=== PATIENT | female | born 1950 | race Caucasian/White ===

== ENCOUNTER 2017-06-18 14:33 | Outpatient (CLI) | payer OTHER | END 2017-06-18 14:45 | disposition home or self-care (01) | LOC: MAMO-SONO 14:33 | DX: N60.11 Diffuse cystic mastopathy of right breast (principal); Z12.31 Encounter for screening mammogram for malignant neoplasm of breast ==

== ENCOUNTER → 2018-09-04 | Outpatient (CLI) | payer OTHER | END | disposition home or self-care (01) | LOC: MAMO-SONO 10:24 | DX: R10.2 Pelvic and perineal pain (principal); N60.11 Diffuse cystic mastopathy of right breast; Z12.31 Encounter for screening mammogram for malignant neoplasm of breast ==

== ENCOUNTER 2018-09-10 08:28 | Outpatient (CLI) | payer OTHER | END 2018-09-10 09:01 | disposition home or self-care (01) | LOC: LAB 08:28 | DX: R10.2 Pelvic and perineal pain (principal); R05 Cough; R07.89 Other chest pain ==

== ENCOUNTER → 2018-10-01 | Day surgery (SDC) | payer OTHER ==
[~2018-10-01] MED LIST: CRESTOR5 MG PO; PREMPRO 0.3 MG1 EACH PO
== END | disposition home or self-care (01) ==
LOC: ADM 09-29 08:00 → CIR.AMB 07:41
DX: N84.0 Polyp of corpus uteri (principal)

== ENCOUNTER 2019-01-29 08:48 | Outpatient (CLI) | payer OTHER | END 2019-01-29 08:50 | disposition home or self-care (01) | LOC: SONOGRAMA 08:48 | DX: R14.0 Abdominal distension (gaseous) (principal) ==

== ENCOUNTER 2019-02-19 08:14 | Outpatient (CLI) | payer OTHER | END 2019-02-19 09:00 | disposition home or self-care (01) | LOC: NUCLEAR 08:14 | DX: R10.11 Right upper quadrant pain (principal) | CPT/HCPCS: 78227; A9537 ==

== ENCOUNTER 2019-05-12 08:48 | Outpatient (CLI) | payer OTHER | END 2019-05-12 09:01 | disposition home or self-care (01) | LOC: SONOGRAMA 08:48 | DX: R10.11 Right upper quadrant pain (principal) ==

== ENCOUNTER 2019-05-19 12:09 | Outpatient (CLI) | payer OTHER | END 2019-05-19 12:10 | disposition home or self-care (01) | LOC: RAD 12:09 | DX: J20.0 Acute bronchitis due to Mycoplasma pneumoniae (principal) ==

== ENCOUNTER 2020-02-08 10:20 | Outpatient (CLI) | payer OTHER | END 2020-02-08 10:32 | disposition home or self-care (01) | LOC: MAMO-SONO 10:20 | PROVIDERS: ATTEND Obstetrics & Gynecology | DX: Z12.31 Encounter for screening mammogram for malignant neoplasm of breast (principal); N60.11 Diffuse cystic mastopathy of right breast ==

== ENCOUNTER 2021-05-16 11:31 | Outpatient (CLI) | payer OTHER | END 2021-05-16 11:48 | disposition home or self-care (01) | LOC: MAMO-SONO 11:31 | PROVIDERS: ATTEND Obstetrics & Gynecology | DX: N60.11 Diffuse cystic mastopathy of right breast (principal) ==

== ENCOUNTER 2022-06-21 11:46 | Outpatient (CLI) | payer OTHER | END 2022-06-21 11:51 | disposition home or self-care (01) | LOC: MAMO-SONO 11:46 | PROVIDERS: ATTEND Obstetrics & Gynecology | DX: N18.2 Chronic kidney disease, stage 2 (mild) (principal); N60.11 Diffuse cystic mastopathy of right breast ==

== ENCOUNTER 2023-07-18 10:37 | Outpatient (CLI) | payer OTHER | END 2023-07-18 10:46 | disposition home or self-care (01) | LOC: MAMO-SONO 10:37 | PROVIDERS: ATTEND Obstetrics & Gynecology | DX: N60.11 Diffuse cystic mastopathy of right breast (principal); Z12.31 Encounter for screening mammogram for malignant neoplasm of breast ==

== ENCOUNTER 2023-10-02 14:04 | Outpatient (CLI) | payer OTHER | END 2023-10-02 14:10 | disposition home or self-care (01) | LOC: SONOGRAMA 14:04 | PROVIDERS: ATTEND Pediatrics | DX: E03.8 Other specified hypothyroidism (principal); E04.1 Nontoxic single thyroid nodule ==

== ENCOUNTER 2024-07-21 10:06 | Outpatient (CLI) | payer OTHER | END 2024-07-21 10:09 | disposition home or self-care (01) | LOC: MAMO-SONO 10:06 | PROVIDERS: ATTEND Obstetrics & Gynecology | DX: E04.1 Nontoxic single thyroid nodule (principal); N60.11 Diffuse cystic mastopathy of right breast; Z12.31 Encounter for screening mammogram for malignant neoplasm of breast ==